=== PATIENT | male | born 1955 | race African-American/Black ===

== ENCOUNTER 2019-02-21 10:50 | Emergency (ER) | payer BC ==
[~2019-02-21] VITALS: Ht 185.4 cm; Wt 104.3 kg
[2019-02-21 11:02] VITALS: BP 172/95
[2019-02-21] MEDS ORDERED: HYDR-3164 PO (11:21)
[2019-02-21] MEDS ORDERED: METH4TAB2 PO (11:21)
--- NOTE | 2019-02-21 11:22 | PHYS DOC ---
Past Medical History Past Medical History: No Pertinent History Past Surgical History: No Surgical History Alcohol Use: None Drug Use: None Adult General Chief Complaint Chief Complaint: BACK PAIN OR INJURY HPI HPI Patient is a 63 year old male who presents with 3 days of right lower back pain with a sharp shooting pain that goes down the back of his right leg. Patient states he's been using a heating pad and taking Advil muscle relaxers. Patient rates his pain a 9 out of 10. Patient states he thought it was getting better but today when he went to get out of his truck was painful. Patient states it's more painful when he goes to stand up. Review of Systems Review of Systems Constitutional: Denies fever or chills [] Musculoskeletal: Right low back pain that radiates down back of right leg or joint pain [] Integument: Denies rash or skin lesions [] Neurologic: Denies headache, focal weakness or sensory changes [] All other systems were reviewed and found to be within normal limits, except as documented in this note. Allergies Allergies Allergies Coded Allergies Type Severity Reaction Last Updated Verified No Known Drug Allergies 02/21/19 No Physical Exam Physical Exam Constitutional: Well developed, well nourished, no acute distress, non-toxic appearance. [] Skin: Warm, dry, no erythema, no rash. [] Back: No tenderness, no CVA tenderness. [] Extremities: No tenderness, no cyanosis, no clubbing, ROM intact, no edema. [] Neurologic: Alert and oriented X 3, normal motor function, normal sensory function, no focal deficits noted. [] Psychologic: Affect normal, judgement normal, mood normal. Normal Physical Exam [] Current Patient Data Vital Signs Vital Signs Date Time Temp Pulse Resp B/P (MAP) Pulse Ox O2 Delivery O2 Flow Rate FiO2 02/21/19 11:02 98.4 78 16 172/95 (120) 98 Room Air 98.4 EKG EKG [] Radiology/Procedures Radiology/Procedures [] Course & Med Decision Making Course & Med Decision Making Patient is a 63 year old male who presents with 3 days of right lower back pain with a sharp shooting pain that goes down the back of his right leg. Patient states he's been using a heating pad and taking Advil muscle relaxers. Patient rates his pain a 9 out of 10. Patient states he thought it was getting better but today when he went to get out of his truck was painful. Patient states it's more painful when he goes to stand up. Patient denies any numbness or tingling, and skin color changes, coolness leg. There is no calf tenderness or swelling. No swelling to extremities. Popliteal pulse present. Skin pink warm and dry. Patient is ambulatory with a slight limp on the right leg due to the sharp shooting pain. No focal back tenderness with palpation. Patient is told to follow-up with his primary care provider. Patient is treated for sciatica. Dragon Disclaimer Dragon Disclaimer This electronic medical record was generated, in whole or in part, using a voice recognition dictation system. Departure Departure Impression: Primary Impression: Low back pain Disposition: HOME, SELF-CARE Condition: STABLE Referrals: UNKNOWN PCP NAME (PCP) Patient Instructions: Sciatica Additional Instructions: Follow-up with primary care provider. Every taking Advil. Take medications as prescribed. Use heating pad. Scripts Hydrocodone/Apap 5-325 (NORCO 5-325 TABLET) 1 Each Tablet 1 TAB PO PRN Q6HRS PRN for PAIN, #8 TAB 0 Refills Prov: JEREMY MILTON APRN 02/21/19 Methylprednisolone (MEDROL) 4 Mg Tab.ds.pk 1 PKG PO UD, #1 PKG Prov: JEREMY MILTON APRN 02/21/19 Problem Qualifiers Primary Impression: Low back pain Chronicity: acute Back pain laterality: right Sciatica presence: with sciatica Sciatica laterality: sciatica of right side Qualified Codes: M54.41 - Lumbago with sciatica, right side JEREMY MILTON [employer] Feb 21, 2019 11:22
== END 2019-02-21 11:37 | disposition home or self-care (01) ==
LOC: ER 10:50
DX: M54.41 Lumbago with sciatica, right side (principal)
CPT/HCPCS: 99283